=== PATIENT | male | born 1965 | race Hispanic/Latino ===

== ENCOUNTER 2024-03-02 20:06 | Emergency (ER) | payer SELFPAY ==
--- NOTE | 2024-03-02 21:29 | RAD REPORT ---
EXAM DESCRIPTION: RAD - Knee Right 3 View - 03/02/2024 8:29 pm CLINICAL HISTORY: PAIN COMPARISON: No comparisons TECHNIQUE: Right knee, 3 views. FINDINGS: No fracture, dislocation or periosteal reaction.No joint effusion seen. No joint space amari rowing. Small soft tissue radiodensities, may represent phleboliths or other benign calcifications. IMPRESSION: No acute osseous abnormality.
--- NOTE | 2024-03-02 21:33 | ER ---
Nurse's Notes [facility] Name: Yann Waters Age: 58 yrs Sex: Male : 1965 Arrival Date: 03/02/2024 Time: 20:06 Bed 19 Private MD: Diagnosis: Pain in right knee;Right ankle pain Presentation: 03/02 20:14 Chief complaint: EMS states: slipped on wet floor and hit his right hip and knee. tm6 Coronavirus screen: Vaccine status: Patient reports receiving the 2nd dose of the covid vaccine. Ebola Screen: Patient negative for fever greater than or equal to 101.5 degrees Fahrenheit, and additional compatible Ebola Virus Disease symptoms Patient denies exposure to infectious person. Patient denies travel to an Ebola-affected area in the 21 days before illness onset. No symptoms or risks identified at this time. Initial Sepsis Screen: Does the patient meet any 2 criteria? No. Patient's initial sepsis screen is negative. Does the patient have a suspected source of infection? No. Patient's initial sepsis screen is negative. Risk Assessment: Do you want to hurt yourself or someone else? Patient reports no desire to harm self or others. Onset of symptoms was March 02, 2024. 20:14 Method Of Arrival: EMS: [facility] 6 20:14 Acuity: [id number] 4 tm6 Triage Assessment: 20:18 General: Appears in no apparent distress. Behavior is calm, cooperative. Pain: tm6 Complains of pain in pelvis and right leg Pain currently is 6 out of 10 on a pain scale. Pain began suddenly. EENT: No signs and/or symptoms were reported regarding the EENT system. Neuro: Level of Consciousness is awake, alert, obeys commands, Oriented to person, place, time, situation. Cardiovascular: No deficits noted. Patient's skin is warm and dry. Respiratory: Airway is patent Respiratory effort is even, unlabored, Respiratory pattern is regular, symmetrical. GI: No signs and/or symptoms were reported involving the gastrointestinal system. : No signs and/or symptoms were reported regarding the genitourinary system. Derm: No signs and/or symptoms reported regarding the dermatologic system. Musculoskeletal: Reports pain in pelvis and right leg Pain is 6 out of 10 on a pain scale. Historical: - Allergies: 20:18 No Known Allergies; tm6 - Home Meds: 20:18 None [Active]; tm6 - PMHx: 20:18 None; tm6 - PSHx: 20:18 None; tm6 - Immunization history:: Adult Immunizations up to date, Client reports receiving the 2nd dose of the Covid vaccine, Flu vaccine status is unknown. - Infectious Disease History:: Denies. - Social history:: Smoking status: Patient denies any tobacco usage or history of. Patient/guardian denies using alcohol. Screenin:21 [facility] ED Fall Risk Assessment (Adult) History of falling in the last 3 months, tm6 including since admission Yes- single mechanical fall (1 pt) Confusion or Disorientation No (0 pts) Intoxicated or Sedated No (0 pts) Impaired Gait No (0 pts) Mobility Assist Device Used No (0 pt) Altered Elimination No (0 pt) Score/Fall Risk Level 0 - 2 = Low Risk Oriented to surroundings, Maintained a safe environment. Abuse screen: Denies threats or abuse. Denies injuries from another. Nutritional screening: No deficits noted. Tuberculosis screening: No symptoms or risk factors identified. Assessment: 20:21 Reassessment: see triage assessment. tm6 21:26 Reassessment: Patient and/or family updated on plan of care and expected duration. Pain tm6 level reassessed. Patient is alert, oriented x 3, equal unlabored respirations, skin warm/dry/pink. 21:48 Reassessment: Patient and/or family updated on plan of care and expected duration. Pain tm6 level reassessed. Patient is alert, oriented x 3, equal unlabored respirations, skin warm/dry/pink. Vital Signs: 20:14 BP 165 / 67; Pulse 85; Resp 20; Temp 98.4(TE); Pulse Ox 97% on R/A; Weight 103.87 kg; tm6 Height 5 ft. 5 in. ; Pain 6/10; 21:26 BP 157 / 71; Pulse 72; Pulse Ox 98% on R/A; tm6 21:47 BP 157 / 71; Pulse 74; Resp 19; Temp 97.7(TE); Pulse Ox 95% on R/A; Pain 4/10; tm6 20:14 Body Mass Index 38.11 (103.87 kg, 165.1 cm) tm6 20:14 Pain Scale: Adult tm6 21:47 Pain Scale: Adult tm6 ED Course: 20:11 Patient arrived in ED. pf1 20:11 Dangelo Quintanilla MD is Attending Physician. rt 20:14 Nick Galloway, RN is Primary Nurse. tm6 20:18 Triage completed. tm6 20:18 Arm band placed on right wrist. tm6 20:21 Patient has correct armband on for positive identification. Placed in gown. Bed in low tm6 position. Call light in reach. Side rails up X 1. Provided Education on: use of call melgra. Client placed on continuous cardiac and pulse oximetry monitoring. NIBP monitoring applied. Pulse ox on. NIBP on. Door closed. Noise minimized. 20:31 Knee Right 3 View XRAY In Process Unspecified. EDMS 21:48 No provider procedures requiring assistance completed. Patient did not have IV access tm6 during this emergency room visit. Administered Medications: No medications were administered Medication: 20:21 VIS not applicable for this client. tm6 Outcome: 21:33 Discharge ordered by . rt 21:48 Discharged to home ambulatory, with family, tm6 21:48 Condition: stable 21:48 Discharge instructions given to patient, family, Instructed on discharge instructions, follow up and referral plans. Demonstrated understanding of instructions, follow-up care, 21:48 Patient left the ED. tm6 Signatures: Dispatcher [employer] EDME Dangelo Quintanilla MD MD rt Cassandra Romo, RN RN pf1 Nick Galloway, RN RN tm6
--- NOTE | 2024-03-02 21:33 | EDPHYS ---
Physician Documentation [facility] Name: Yann Waters Age: 58 yrs Sex: Male : 1965 Arrival Date: 03/02/2024 Time: 20:06 Bed 19 Private MD: ED Physician Dangelo Quintanilla HPI: 03/02 20:16 This 58 yrs old Male presents to ER via Unassigned with complaints of Fall Injury. rt 20:20 Patient presents to the ED with slip and fall on a wet surface. Patient twisted his rt knee, landed on his buttock. Reports pain to the right knee. Has been able to bear weight. Denies hitting his head, other injury, other acute complaints, symptoms are mild in severity, no other aggravating or alleviating factors.. Historical: - Allergies: 20:18 No Known Allergies; tm6 - Home Meds: 20:18 None [Active]; tm6 - PMHx: 20:18 None; tm6 - PSHx: 20:18 None; tm6 - Immunization history:: Adult Immunizations up to date, Client reports receiving the 2nd dose of the Covid vaccine, Flu vaccine status is unknown. - Infectious Disease History:: Denies. - Social history:: Smoking status: Patient denies any tobacco usage or history of. Patient/guardian denies using alcohol. ROS: 20:20 Constitutional: Negative for fever, chills, and weight loss, Neck: Negative for injury, rt pain, and swelling, Cardiovascular: Negative for chest pain, palpitations, and edema, Respiratory: Negative for shortness of breath, cough, wheezing, and pleuritic chest pain, Abdomen/GI: Negative for abdominal pain, nausea, vomiting, diarrhea, and constipation, Back: Negative for injury and pain, Skin: Negative for injury, rash, and discoloration, Neuro: Negative for headache, weakness, numbness, tingling, and seizure, Psych: Negative for depression, anxiety, suicide ideation, homicidal ideation, and hallucinations, 20:20 MS/extremity: Positive for pain, Negative for deformity, Exam: 20:20 Constitutional: This is a well developed, well nourished patient who is awake, alert, rt and in no acute distress. Back: No spinal tenderness. No costovertebral tenderness. Full range of motion. Skin: Warm, dry with normal turgor. Normal color with no rashes, no lesions, and no evidence of cellulitis. Neuro: Awake and alert, GCS 15, oriented to person, place, time, and situation. Cranial nerves II-XII grossly intact. Motor strength 5/5 in all extremities. Sensory grossly intact. Cerebellar exam normal. Normal gait. Psych: Awake, alert, with orientation to person, place and time. Behavior, mood, and affect are within normal limits. 20:20 Musculoskeletal/extremity: Minimal tenderness to the medial aspect of the right knee, no appreciable swelling noted, no joint laxity, no deformities noted, pulses, motor, sensation intact. Vital Signs: 20:14 BP 165 / 67; Pulse 85; Resp 20; Temp 98.4(TE); Pulse Ox 97% on R/A; Weight 103.87 kg; tm6 Height 5 ft. 5 in. ; Pain 6/10; 21:26 BP 157 / 71; Pulse 72; Pulse Ox 98% on R/A; tm6 21:47 BP 157 / 71; Pulse 74; Resp 19; Temp 97.7(TE); Pulse Ox 95% on R/A; Pain 4/10; tm6 20:14 Body Mass Index 38.11 (103.87 kg, 165.1 cm) tm6 20:14 Pain Scale: Adult tm6 21:47 Pain Scale: Adult tm6 MDM: 20:11 Patient medically screened. rt 21:43 Differential diagnosis: Sprain, fracture. Data reviewed: vital signs, nurses notes, rt radiologic studies. Independent interpretation of the following test(s) in the Emergency Department X-Ray: My interpretation is No fracture seen on my interpretation of x-ray images. Counseling: I had a detailed discussion with the patient and/or guardian regarding the historical points, exam findings, and any diagnostic results supporting the discharge/admit diagnosis, radiology results, the need for outpatient follow up. ED course: Is went to discharge the patient, he complained of ankle pain. He did have some minimal tenderness over the ATFL, no posterior malleoli or tenderness. He is able to bear weight. By [place] ankle rules, x-rays not indicated.. 03/02 20:11 Order name: Knee Right 3 View XRAY; Complete Time: 21:30 rt Administered Medications: No medications were administered Disposition Summary: 03/02/24 21:33 Discharge Ordered Notes: Location: Home rt Problem: new rt Symptoms: have improved rt Condition: Stable rt Diagnosis - Pain in right knee rt - Right ankle pain rt Followup: rt - With: Private Physician - When: 5 - 6 days - Reason: Discharge Instructions: - Discharge Summary Sheet rt - Ankle Sprain rt - Acute Knee Pain, Adult rt Forms: - Medication Reconciliation Form rt - Antibiotic Education rt - Prescription Opioid Use rt - Patient Portal Instructions rt - Leadership Thank You Letter rt - Work release form tm6 Signatures: Dispatcher [employer] Dangelo Dunaway MD MD rt Nick Galloway RN RN tm6
[2024-03-02 23:11] VITALS: BP 157/71; TEMP 97.7; O2SAT 95
== END 2024-03-02 21:48 | disposition home or self-care (01) ==
LOC: ER 20:06
DX: M25.561 Pain in right knee (principal); M25.571 Pain in right ankle and joints of right foot
CPT/HCPCS: 99283